=== PATIENT | male | born 1965 | race Caucasian/White ===

== ENCOUNTER 2023-12-15 22:11 | Inpatient (IN) ==
[2023-12-15 23:05] LABS: ABS Eosinophils 0.2 10^3/uL (0.0-0.5); ABS Lymphocytes 1.9 10^3/uL (1.0-4.8); Eosinophil % 2.5 %; Hematocrit 37.3 % (38-53); Mean Corpuscular Hemoglobin 33.4 pg (27-33); Mean Corpuscular Hgb Conc 34.8 g/dL (31-36); Mean Corpuscular Volume 95.9 fL (80-97); Mean Platelet Volume 6.6 fL (7.5-11.2); Platelet Count 240 10^3/uL (150-450); Red Blood Count 3.89 10^6/uL (4.06-5.63); Red Cell Distribution Width 12.9 % (12-17); White Blood Count 8.2 10^3/uL (3.6-10.2)
[2023-12-15] MEDS: Midazolam 2 mg/2 ml VIAL 1 mg/ml 2 ml VIAL (2 mg) IM ONE (23:08)
[2023-12-15 23:46] LABS: ALT 26 U/L (7-52); AST 33 U/L (13-39); Acetaminophen < 15 mcg/mL; Albumin 4.5 g/dL (3.2-5.2); Albumin/Globulin Ratio 1.8 (1-3); Alcohol, S < 13 mg/dL (<13); Alkaline Phosphatase 67 U/L (35-149); Anion Gap 5 mmol/L (2-16); Blood Urea Nitrogen 11 mg/dL (6-24); CO2 Carbon Dioxide 32 mmol/L (22-32); Calcium 9.1 mg/dL (8.6-10.3); Chloride 91 mmol/L (101-111); Creatinine, Serum 0.76 mg/dL (0.67-1.17); Globulin 2.5 g/dL (2-4); Glucose 92 mg/dL (70-100); Potassium 4.7 mmol/L (3.5-5.0); Salicylate < 2.50 mg/dL (<30); Sodium 128 mmol/L (135-145); Total Bilirubin 0.4 mg/dL (0.2-1.0); eGFR CKD-EPI 103.5 (>60)
[2023-12-16 00:01] LABS: TSH Ultra Thyroid Stim Horm 2.04 mcIU/mL (0.34-5.60)
[2023-12-16 00:09] LABS: Urine Appearance Clear; Urine Bilirubin Negative (Negative); Urine Blood Negative (Negative); Urine Color Colorless; Urine Glucose Negative (Negative); Urine Ketones Negative (Negative); Urine Nitrite Negative (Negative); Urine Protein Negative (Negative); Urine Specific Gravity 1.006 (1.002-1.030); Urine Urobilinogen Negative (Negative); Urine pH 7.5 (5.0-8.0)
[2023-12-16 00:43] LABS: Urine Benzodiazepine Screen None Detected (None Detect); Urine Cannabinoids Screen None Detected (None Detect); Urine Opiates Screen None Detected (None Detect)
[2023-12-16] MEDS: Haloperidol 5 mg/ml SDV IV/IM 5 MG/ML AMP IM ONE (00:45)
[2023-12-16] MEDS: Midazolam 2 mg/2 ml VIAL 1 mg/ml 2 ml VIAL (2 mg) IM ONE ×2 (01:25→07:42)
[2023-12-16] MEDS: Ziprasidone IM 20 mg VIAL 1 ml VIAL IM ONE (07:41)
[2023-12-16] MEDS ORDERED: Al Hydrox/Mg Hydrox/Simet LIQ 30 ML UDC PO PRN (09:12)
[2023-12-16] MEDS ORDERED: Polyethylene Glycol 3350 17 GM PACKET PO PRN (14:08)
[2023-12-17] MEDS: Nicotine PATCH 14 MG/24 HR PATCH TRANSDERM SCH (08:31)
[2023-12-17 11:07] LABS: HDL Cholesterol 33.3 mg/dL
[2023-12-17] MEDS: OLANZapine 5 mg TAB *ODT PO SCH (13:22)
[2023-12-18] MEDS: Nicotine GUM 2MG FRUIT FLAVOR PO PRN (09:40)
[2023-12-22 08:11] VITALS: BP 111/83
== END 2023-12-22 09:03 | DRG 885 ==
LOC: ED 22:11 → EDHOLD 12-16 09:12 → BSU 12-16 09:42
PROVIDERS: ADMIT Psychiatry & Neurology Psychiatry; ATTEND Psychiatry & Neurology Psychiatry